=== PATIENT | male | born 1970 | race Caucasian/White ===

== ENCOUNTER 2018-10-31 11:04 | Observation (INO) | payer SELFPAY ==
[2018-10-31 11:23] VITALS: BMI 38.4
[2018-10-31] MEDS ORDERED: Sodium Chloride 0.9% 1,000 ML IV ONE (11:52)
[2018-10-31 12:11] LABS: BASO # 0.1 K/uL (0.0-0.2); BASO % 0.6 % (0.0-2.0); EOS # 0.1 K/uL (0.0-0.7); EOS % 0.5 % (0.0-4.0); HEMOGLOBIN 14.1 g/dL (12.0-18.0); LYMPH # 1.3 K/uL (1.0-4.3); LYMPH % 10.1 % (20.0-40.0); MEAN CELL VOLUME 92.7 fL (80.0-94.0); MEAN CORPUSCULAR HEMOGLOBIN 31.1 pg (27.0-31.0); MEAN CORPUSCULAR HGB CONC 33.6 g/dL (33.0-37.0); MEAN PLATELET VOLUME 8.7 fL (7.2-11.7); MONO # 1.1 K/uL (0.0-0.8); MONO % 8.8 % (0.0-10.0); NEUT # 10.1 K/uL (1.8-7.0); RBC 4.52 Mil/uL (4.40-5.90); RED CELL DISTRIBUTION WIDTH 13.2 % (11.5-14.5); WHITE BLOOD COUNT 12.6 K/uL (4.8-10.8)
[2018-10-31 12:19] LABS: HCG,QUALITATIVE URINE NEGATIVE
[2018-10-31 12:23] LABS: SQUAMOUS EPITHIAL < 1 /hpf (0-5); URINE BACTERIA RARE (<OCC); URINE BILIRUBIN NEGATIVE (NEGATIVE); URINE BLOOD 2+ (NEGATIVE); URINE CLARITY Hazy (Clear); URINE COLOR Amber (YELLOW); URINE GLUCOSE (UA) NORMAL (Normal); URINE LEUKOCYTE ESTERASE NEG Leu/uL (Negative); URINE PROTEIN 1+ mg/dL (NEGATIVE)
[2018-10-31 12:27] LABS: ALB/GLOB RATIO 1.4 (1.0-2.1); ALBUMIN 4.4 g/dL (3.5-5.0); ALT/SGPT 8 U/L (21-72); AST/SGOT 19 U/L (17-59); BLOOD UREA NITROGEN 9 mg/dL (9-20); CALCIUM 9.2 mg/dl (8.6-10.4); GFR NON-AFRICAN AMERICAN > 60; LIPASE 28 U/L (23-300)
--- NOTE | 2018-10-31 12:34 | C.PDOC ---
History Of Present Illness 48 y/o male presents to the ED for evaluation of gradual-onset RLQ pain, developing for past 4-5 days. Associated with some discomfort on urination. No fevers, chills, vomiting, diarrhea, chest pain, SOB, or other associated complaints. Time Seen by Provider: 10/31/18 11:30 Chief Complaint (Nursing): Abdominal Pain History Per: Patient History/Exam Limitations: no limitations Onset/Duration Of Symptoms: Days (x 4) Current Symptoms Are (Timing): Still Present Location Of Pain/Discomfort: RLQ Associated Symptoms: Urinary Symptoms Past Medical History Reviewed: Historical Data, Nursing Documentation, Vital Signs Vital Signs: Last Vital Signs Temp 100.1 F H 10/31/18 11:19 Pulse 104 H 10/31/18 11:19 Resp 18 10/31/18 11:19 BP 123/76 10/31/18 11:19 Pulse Ox 97 10/31/18 11:19 Surgical History: No Surg Hx Family History: States: Unknown Family Hx - Social History Hx Tobacco Use: Yes (former) Hx Alcohol Use: Yes Hx Substance Use: No (Former) - Immunization History Hx Tetanus Toxoid Vaccination: No Hx Influenza Vaccination: No Hx Pneumococcal Vaccination: No Review Of Systems Except As Marked, All Systems Reviewed And Found Negative. Constitutional: Negative for: Fever, Chills Cardiovascular: Negative for: Chest Pain Respiratory: Negative for: Cough, Shortness of Breath Gastrointestinal: Positive for: Abdominal Pain. Negative for: Vomiting, Diar kavon Genitourinary: Positive for: Dysuria. Negative for: Hematuria Musculoskeletal: Negative for: Back Pain Neurological: Negative for: Weakness, Dizziness Physical Exam - Physical Exam Appears: Well, Non-toxic, No Acute Distress Skin: Normal Color, Warm, No Rash Head: Normacephalic Eye(s): bilateral: PERRL Oral Mucosa: Moist Neck: Trachea Midline, Supple Cardiovascular: Rhythm Regular, No Murmur, No JVD Respiratory: No Decreased Breath Sounds, No Accessory Muscle Use, No Rales, No Rhonchi, No Wheezing Gastrointestinal/Abdominal: Soft, Tenderness (Moderate RLQ tenderness), No Distention, No Guarding, No Rebound Back: No CVA Tenderness Extremity: Normal ROM, No Swelling Extremity: Bilateral: Atraumatic Neurological/Psych: Oriented x3, Normal Speech Gait: Steady ED Course And Treatment - Laboratory Results Result Diagrams: 10/31/18 12:08 10/31/18 12:08 Lab Results: Total Bilirubin 1.5 mg/dL (0.2-1.3) H 10/31/18 12:08 AST 19 U/L (17-59) 10/31/18 12:08 ALT 8 U/L (21-72) L 10/31/18 12:08 Alkaline Phosphatase 81 U/L (38-126) 10/31/18 12:08 Total Protein 7.5 g/dL (6.3-8.3) 10/31/18 12:08 Albumin 4.4 g/dL (3.5-5.0) 10/31/18 12:08 Globulin 3.2 gm/dL (2.2-3.9) 10/31/18 12:08 Albumin/Globulin Ratio 1.4 (1.0-2.1) 10/31/18 12:08 Lipase 28 U/L (23-300) 10/31/18 12:08 Urine Color Madhavi (YELLOW) 10/31/18 12:08 Urine Clarity Hazy (Clear) 10/31/18 12:08 Urine pH 5.0 (5.0-8.0) 10/31/18 12:08 Ur Specific [place] 1.030 (1.003-1.030) 10/31/18 12:08 Urine Protein 1+ mg/dL (NEGATIVE) H 10/31/18 12:08 Urine Glucose (UA) Normal mg/dL (Normal) 10/31/18 12:08 Urine Ketones Trace mg/dL (NEGATIVE) 10/31/18 12:08 Urine Blood 2+ (NEGATIVE) H 10/31/18 12:08 Urine Nitrate Negative (NEGATIVE) 10/31/18 12:08 Urine Bilirubin Negative (NEGATIVE) 10/31/18 12:08 Urine Urobilinogen 4.0 mg/dL (0.2-1.0) 10/31/18 12:08 Ur Leukocyte Esterase Neg [place]/uL (Negative) 10/31/18 12:08 Urine WBC (Auto) 2 /hpf (0-5) 10/31/18 12:08 Urine RBC (Auto) 7 /hpf (0-3) H 10/31/18 12:08 Ur Squamous Epith Cells < 1 /hpf (0-5) 10/31/18 12:08 Urine Bacteria Rare (<OCC) 10/31/18 12:08 Urine HCG, Qual Negative 10/31/18 12:08 Urine HCG, Qual Negative 10/31/18 12:08 Lab Interpretation: Abnormal O2 Sat by Pulse Oximetry: 97 (RA) Pulse Ox Interpretation: Normal - CT Scan/US CT A/P Other Rad Studies (CT/US): Radiology Report Reviewed CT/US Interpretation: ictator : Ernesto Argueta MD. Medical Technologist Chemistry : Appro libia : Ernesto Argueta MD. Approver2 : Report Date : 10/31/2018 13:37:59. My Comment : . Date of service: 10/31/2018. PROCEDURE: CT Abdomen and Pelvis with contrast. HISTORY: RLQ pain, fever. COMPARISON: None. TECHNIQUE: Contrast dose: 100 mL Visipaque 320. Radiation dose: Total exam DLP = 1154.27 mGy-cm. This CT exam was performed using one or more of the following dose reduction techniques: Automated exposure control, adjustment of the mA and/or kV according to patient size, and/or use of iterative reconstruction technique. FINDINGS: LOWER THORAX: Unremarkable. LIVER: Unremarkable. No gross lesion or ductal dilatation. GALLBLADDER AND BILE DUCTS: Unremarkable. PANCREAS: Unrema rkable. No gross lesion or ductal dilatation. SPLEEN: Unremarkable. ADRENALS: Unremarkable. No mass. KIDNEYS AND URETERS: Unremarkable. No hydronephrosis. No solid mass. VASCULATURE: Unremarkable. No aortic aneurysm. No aortic atherosclerotic calcification or mural plaque present. BOWEL: There is circumferential mural thickening of the terminal ileum likely secondary to adjacent inflammatory change from appendicitis. There is no bowel obstruction. No other abnormal bowel loops are appreciated. APPENDIX: There is distention of the appendix to a diameter of approximately 1.7 cm. There is extensive periappendiceal inflammatory change. There is probable periappendiceal abscess adjacent to the distal aspect of the appendix. This is mildly irregular and demonstrates only minimal peripheral enhancement. This measures 3.6 x 3.7 x 3.2 cm. There is no free intraperitoneal air. PERITONEUM: Unremarkable. No free fluid. No free air. LYMPH NODES: Unremarkable. No enlarged lymph nodes. BLADDER: Poorly distended. REPRODUCTIVE: Normal prostate. BONES: No acute fracture. OTHER FINDINGS: None. IMPRESSION: Findings consistent with acute appendicitis with probable periappendiceal abscess, up to 3.7 cm in greatest dimension. No free air. Secondary inflammation of the terminal ileum. No other significant abnormality. Progress Note: Labs and CT Abd/Pelvis ordered. Administered NS IV fluids and 30 mg IV Toradol. After CT A/P review, (+) acute appendicitis. Case discussed with surgery on-call and admission arranged Disposition - Disposition Disposition: HOSPITALIZED Disposition Time: 14:30 Condition: STABLE - Clinical Impression Clinical Impression: Acute appendicitis - PA / RETAIL STOCKER / Resident Statement MD/DO has reviewed & agrees with the documentation as recorded. - Scribe Statement The provider has reviewed the documentation as recorded by the Rafiblaurie Gaston All medical record entries made by the Eleonora were at my direction and personally dictated by me. I have reviewed the chart and agree that the record accurately reflects my personal performance of the history, physical exam, medical decision making, and the department course for this patient. I have also personally directed, reviewed, and agree with the discharge instructions and disposition.
[2018-10-31] MEDS ORDERED: Iodixanol 320 MG/ML 100 ML BOTTLE IV ONE (12:49)
--- NOTE | 2018-10-31 13:52 | CT ---
Date of service: 10/31/2018 PROCEDURE: CT Abdomen and Pelvis with contrast HISTORY: RLQ pain, fever COMPARISON: None. TECHNIQUE: Contrast dose: 100 mL Visipaque 320 Radiation dose: Total exam DLP = 1154.27 mGy-cm. This CT exam was performed using one or more of the following dose reduction techniques: Automated exposure control, adjustment of the mA and/or kV according to patient size, and/or use of iterative reconstruction technique. FINDINGS: LOWER THORAX: Unremarkable. LIVER: Unremarkable. No gross lesion or ductal dilatation. GALLBLADDER AND BILE DUCTS: Unremarkable. PANCREAS: Unremarkable. No gross lesion or ductal dilatation. SPLEEN: Unremarkable. ADRENALS: Unremarkable. No mass. KIDNEYS AND URETERS: Unremarkable. No hydronephrosis. No solid mass. VASCULATURE: Unremarkable. No aortic aneurysm. No aortic atherosclerotic calcification or mural plaque present. BOWEL: There is circumferential mural thickening of the terminal ileum likely secondary to adjacent inflammatory change from appendicitis. There is no bowel obstruction. No other abnormal bowel loops are appreciated. APPENDIX: There is distention of the appendix to a diameter of approximately 1.7 cm. There is extensive periappendiceal inflammatory change. There is probable periappendiceal abscess adjacent to the distal aspect of the appendix. This is mildly irregular and demonstrates only minimal peripheral enhancement. This measures 3.6 x 3.7 x 3.2 cm. There is no free intraperitoneal air. PERITONEUM: Unremarkable. No free fluid. No free air. LYMPH NODES: Unremarkable. No enlarged lymph nodes. BLADDER: Poorly distended REPRODUCTIVE: Normal prostate BONES: No acute fracture. OTHER FINDINGS: None. IMPRESSION: Findings consistent with acute appendicitis with probable periappendiceal abscess, up to 3.7 cm in greatest dimension. No free air. Secondary inflammation of the terminal ileum. No other significant abnormality.
[2018-10-31] MEDS ORDERED: Piperacill/Tazo 4.5gm in Dex 4.5 GM/100 ML BAG IVPB STA (14:29)
[2018-10-31] MEDS ORDERED: Piperacill/Tazo 4.5gm in Dex 4.5 GM/100 ML BAG IVPB ONE (14:45)
[2018-10-31 15:40] LABS: INR 1.5; PROTHROMBIN TIME 16.4 SECONDS (9.7-12.2)
--- NOTE | 2018-10-31 15:47 | CP.PCM.HP ---
History of Present Illness - History of Present Illness History of Present Illness: General Surgery - Dr. Ferraro 48 yo M w no PMH who presents w/ RLQ abdominal pain x2 days. Pt states the pain began 2 days ago and was located in the RLQ and suprapubic region. He states he tried to take some medicine for pain but it did not help and the pain became progressively worse. yesterday he was at work for most of the day but when he came home he did not feel like eating and just went to sleep. this morning he woke up and pain was worse so he decided to come to the ED. Pt denies any Nausea/Vomiting, Diarrhea/Constipation, Dysuria/Hematuria, SOB or chest pain. PMH: denies PSH: denies NKDA No meds ETOH use Present on Admission - Present on Admission Any Indicators Present on Admission: No Review of Systems - Review of Systems All systems: reviewed and no additional remarkable complaints except (as per HPI) Past Patient History - Past Social History Smoking Status: Former Smoker - PSYCHIATRIC Hx Substance Use: No (Former) - SURGICAL HISTORY Hx Surgeries: No Meds Allergies/Adverse Reactions: Allergies Allergy/AdvReac Type Severity Reaction Status Date / Time No Known Allergies Allergy Verified 10/31/18 11:16 Physical Exam - Constitutional Appears: No Acute Distress - Head Exam Head Exam: ATRAUMATIC, NORMAL INSPECTION, NORMOCEPHALIC - Eye Exam Eye Exam: Normal appearance - Respiratory Exam Respiratory Exam: NORMAL BREATHING PATTERN. absent: Respiratory Distress - Cardiovascular Exam Cardiovascular Exam: REGULAR RHYTHM - GI/Abdominal Exam GI & Abdominal Exam: Guarding, Rebound, Soft, Tenderness (RLQ). absent: D istended, Hernia, Rigid - Neurological Exam Neurological exam: Alert, Oriented x3 - Psychiatric Exam Psychiatric exam: Normal Affect, Normal Mood - Skin Skin Exam: Dry, Intact Results - Vital Signs Recent Vital Signs: Last Vital Signs Temp 100.1 F H 10/31/18 11:19 Pulse 104 H 10/31/18 11:19 Resp 18 10/31/18 11:19 BP 123/76 10/31/18 11:19 Pulse Ox 97 10/31/18 14:31 - Labs Result Diagrams: 10/31/18 12:08 10/31/18 12:08 Labs: Laboratory Results - last 24 hr 10/31/18 10/31/18 10/31/18 12:08 12:08 12:08 WBC 12.6 H RBC 4.52 Hgb 14.1 Hct 41.8 MCV 92.7 MCH 31.1 H MCHC 33.6 RDW 13.2 Plt Count 269 MPV 8.7 Neut % (Auto) 80.0 H Lymph % (Auto) 10.1 L Stanley % (Auto) 8.8 Eos % (Auto) 0.5 Baso % (Auto) 0.6 Neut # (Auto) 10.1 H Lymph # (Auto) 1.3 Stanley # (Auto) 1.1 H Eos # (Auto) 0.1 Baso # (Auto) 0.1 PT INR APTT Sodium 134 Potassium 4.0 Chloride 96 L Carbon Dioxide 29 Anion Gap 13 BUN 9 Creatinine 0.8 Est GFR ( Amer) > 60 Est GFR (Non-Af Amer) > 60 Random Glucose 118 H Calcium 9.2 Total Bilirubin 1.5 H AST 19 ALT 8 L Alkaline Phosphatase 81 Total Protein 7.5 Albumin 4.4 Globulin 3.2 Albumin/Globulin Ratio 1.4 Lipase 28 Urine Color Madhavi Urine Clarity Hazy Urine pH 5.0 Ur Specific [place] 1.030 Urine Protein 1+ H Urine Glucose (UA) Normal Urine Ketones Trace Urine Blood 2+ H Urine Nitrate Negative Urine Bilirubin Negative Urine Urobilinogen 4.0 Ur Leukocyte Esterase Neg Urine WBC (Auto) 2 Urine RBC (Auto) 7 H Ur Squamous Epith Cells < 1 Urine Bacteria Rare Urine HCG, Qual Negative Influenza Typ A,B (EIA) 10/31/18 10/31/18 12:08 15:15 WBC RBC Hgb Hct MCV MCH MCHC RDW Plt Count MPV Neut % (Auto) Lymph % (Auto) Stanley % (Auto) Eos % (Auto) Baso % (Auto) Neut # (Auto) Lymph # (Auto) Stanley # (Auto) Eos # (Auto) Baso # (Auto) PT 16.4 H INR 1.5 APTT 37 H Sodium Potassium Chloride Carbon Dioxide Anion Gap BUN Creatinine Est GFR ( Amer) Est GFR (Non-Af Amer) Random Glucose Calcium Total Bilirubin AST ALT Alkaline Phosphatase Total Protein Albumin Globulin Albumin/Globulin Ratio Lipase Urine Color Urine Clarity Urine pH Ur Specific [place] Urine Protein Urine Glucose (UA) Urine Ketones Urine Blood Urine Nitrate Urine Bilirubin Urine Urobilinogen Ur Leukocyte Esterase Urine WBC (Auto) Urine RBC (Auto) Ur Squamous Epith Cells Urine Bacteria Urine HCG, Qual Influenza Typ A,B (EIA) Negative for flu a/b Assessment & Plan - Assessment and Plan (Free Text) Assessment: 48 yo M w/ acute appendicitis w/ abscess -NPO -IVF -IV abx - Zosyn -OR for appendectomy and abscess drainage DW Dr. Jasmine White PGY4
[2018-10-31] MEDS ORDERED: Midazolam 2 MG/2 ML VIAL ONE (17:40)
[2018-10-31] MEDS ORDERED: Propofol 10 mg/ml Inj (20 ML) ONE (17:40)
[2018-10-31] MEDS ORDERED: Succinylcholine Chloride 20 mg/ml Syr (5 ml) IV ONE (17:42)
[2018-10-31] MEDS ORDERED: Neostigmine 1:1000 (1 mg/ml) Inj ONE (17:42)
[2018-10-31] MEDS ORDERED: Bupivacaine-Epi 0.5%-1:200,000 PF Inj ONE (17:51)
[2018-10-31] MEDS ORDERED: HYDROmorphone 0.5 mg/0.5 ml ISec IVP PRN (18:41)
--- NOTE | 2018-10-31 19:14 | PCM.SURG1 ---
Surgeon's Initial Post Op Note - Surgeon's Notes Surgeon: Dr. Ferraro Pastry Assistant: Dr. White PGY4 Type of Anesthesia: General Endo Anesthesia Administered By: Sierra Pre-Operative Diagnosis: Acute Perforated Appendicitis w/ Abscess Operative Findings: same Post-Operative Diagnosis: same Operation Performed: Laparoscopic Appendectomy. Drainage of Intra-Abdominal Abscess Specimen/Specimens Removed: Appendix Estimated Blood Loss: EBL {In ML}: 10 Blood Products Given: N/A Drains Used: Sergio Post-Op Condition: Good Date of Surgery/Procedure: 10/31/18 Time of Surgery/Procedure: 19:14
[2018-10-31] MEDS ORDERED: Lactated Ringer's 1,000 ML IV SCH (19:15)
[2018-10-31] MEDS: Piperacill/Tazo 3.375gm in Dex 3.375 GM/50 ML BAG IVPB SCH (20:25)
[2018-10-31 21:40] VITALS: RESP 20
[2018-11-01] MEDS: Piperacill/Tazo 3.375gm in Dex 3.375 GM/50 ML BAG IVPB SCH ×4 (01:07→20:00)
[2018-11-01] MEDS: HYDROmorphone 0.5 mg/0.5 ml ISec IVP PRN ×4 (02:15→18:03)
[2018-11-01 07:28] LABS: BASO % 0.4 % (0.0-2.0); EOS # 0.1 K/uL (0.0-0.7); EOS % 1.2 % (0.0-4.0); HEMOGLOBIN 12.2 g/dL (12.0-18.0); LYMPH # 0.9 K/uL (1.0-4.3); LYMPH % 12.4 % (20.0-40.0); MEAN CELL VOLUME 93.7 fL (80.0-94.0); MEAN CORPUSCULAR HEMOGLOBIN 32.7 pg (27.0-31.0); MEAN CORPUSCULAR HGB CONC 34.9 g/dL (33.0-37.0); MONO # 0.7 K/uL (0.0-0.8); MONO % 9.3 % (0.0-10.0); NEUT # 5.6 K/uL (1.8-7.0); NEUT % 76.7 % (50.0-75.0); NRBC % 0.1 % (0.0-2.0); RBC 3.74 Mil/uL (4.40-5.90); RED CELL DISTRIBUTION WIDTH 13.2 % (11.5-14.5); WHITE BLOOD COUNT 7.3 K/uL (4.8-10.8)
--- NOTE | 2018-11-01 08:09 | CP.PCM.PN ---
Subjective - Date & Time of Evaluation Date of Evaluation: 11/01/18 Time of Evaluation: 08:06 - Subjective Subjective: General Surgeyr - Dr. Ferraro Pt S&E. NICOLAS. Pt has mild lower abdominal pain at site of drain, otherwise denies any complaints. He tolerated regular food yesterday. Fever of 101.5 last night which responded to Tylenol. He denies any Nausea/Vomiting/Chills/Chest pain/SOB/Dysuria. Objective - Vital Signs/Intake and Output Vital Signs (last 24 hours): Temp Pulse Resp BP Pulse Ox 99.8 F H 95 H 20 113/66 94 L 11/01/18 04:30 11/01/18 00:00 11/01/18 00:00 10/31/18 21:39 11/01/18 00:00 Intake and Output: 11/01/18 11/01/18 06:59 18:59 Intake Total 1570 Output Total 152 Balance 1418 - Medications Medications: Current Medications Acetaminophen (Tylenol 325mg Tab) 650 mg PO Q6H PRN PRN Reason: Fever >100.4 F Last Admin: 10/31/18 20:15 Dose: 650 mg Hydromorphone HCl (Dilaudid) 0.5 mg IVP Q4H PRN PRN Reason: Pain, severe (8-10) Last Admin: 11/01/18 06:28 Dose: 0.5 mg Piperacillin Sod/Tazobactam Sod (Zosyn 3.375 Gm Iv Premix) 3.375 gm in 50 mls @ 100 mls/hr IVPB Q6H KAVIN; Protocol Last Admin: 11/01/18 08:03 Dose: 100 mls/hr Ondansetron HCl (Zofran Inj) 4 mg IV Q6 PRN PRN Reason: Nausea/Vomiting Tramadol HCl (Ultram) 50 mg PO TID PRN PRN Reason: Pain, moderate (4-7) - Labs Labs: 11/01/18 07:20 10/31/18 12:08 PT 16.4 SECONDS (9.7-12.2) H 10/31/18 15:15 INR 1.5 10/31/18 15:15 APTT 37 SECONDS (21-34) H 10/31/18 15:15 - Constitutional Appears: Well, No Acute Distress - Head Exam Head Exam: ATRAUMATIC, NORMAL INSPECTION, NORMOCEPHALIC - Eye Exam Eye Exam: Normal appearance - Respiratory Exam Respiratory Exam: NORMAL BREATHING PATTERN. absent: Respiratory Distress - Cardiovascular Exam Cardiovascular Exam: REGULAR RHYTHM - GI/Abdominal Exam GI & Abdominal Exam: Soft, Tenderness (appropriately). absent: Distended, Firm, Guarding, Rigid, Rebound Additional comments: doretha drain suprapubic with serosanguinous drainage, 150cc/24hrs - Neurological Exam Neurological Exam: Alert, Oriented x3 - Psychiatric Exam Psychiatric exam: Normal Affect, Normal Mood - Skin Skin Exam: Dry, Intact Assessment and Plan - Assessment and Plan (Free Text) Assessment: 48 M w/ acute perforated appendicitis s/p Lap appendectomy and abscess drainage, POD 1 -Continue Regular diet -Continue IV Abx - Zosyn -Encourage OOB and Ambulation -Pain control prn -Monitor drain output DW Dr Jasmine White PGY4
[2018-11-01 08:40] LABS: ALB/GLOB RATIO 1.2 (1.0-2.1); ALBUMIN 3.3 g/dL (3.5-5.0); ALT/SGPT < 6 U/L (21-72); AST/SGOT 16 U/L (17-59); BLOOD UREA NITROGEN 10 mg/dL (9-20); GFR NON-AFRICAN AMERICAN > 60
[2018-11-02] MEDS: Piperacill/Tazo 3.375gm in Dex 3.375 GM/50 ML BAG IVPB SCH ×4 (01:36→20:23)
[2018-11-02 07:58] LABS: BASO % 0.2 % (0.0-2.0); EOS # 0.4 K/uL (0.0-0.7); EOS % 4.2 % (0.0-4.0); LYMPH # 0.6 K/uL (1.0-4.3); MEAN CELL VOLUME 94.1 fL (80.0-94.0); MEAN CORPUSCULAR HEMOGLOBIN 32.7 pg (27.0-31.0); MEAN CORPUSCULAR HGB CONC 34.7 g/dL (33.0-37.0); MEAN PLATELET VOLUME 8.9 fL (7.2-11.7); MONO # 0.9 K/uL (0.0-0.8); MONO % 9.4 % (0.0-10.0); NEUT # 7.2 K/uL (1.8-7.0); NEUT % 79.2 % (50.0-75.0); PLATELET COUNT 242 K/uL (130-400); RBC 3.67 Mil/uL (4.40-5.90); RED CELL DISTRIBUTION WIDTH 12.9 % (11.5-14.5); WHITE BLOOD COUNT 9.2 K/uL (4.8-10.8)
[2018-11-02 08:20] LABS: ALB/GLOB RATIO 1.1 (1.0-2.1); ALBUMIN 3.3 g/dL (3.5-5.0); ALT/SGPT 14 U/L (21-72); AST/SGOT 19 U/L (17-59); BLOOD UREA NITROGEN 9 mg/dL (9-20); CALCIUM 8.4 mg/dl (8.6-10.4); GFR NON-AFRICAN AMERICAN > 60
--- NOTE | 2018-11-02 08:41 | CP.PCM.PN ---
Subjective - Date & Time of Evaluation Date of Evaluation: 11/02/18 Time of Evaluation: 08:37 - Subjective Subjective: SURGERY NOTE FOR DR. MAHMOOD 48M seen and examined at bedside. Patient states pain is improving,, denies nausea or vomiting. He is tolerating diet. Objective - Vital Signs/Intake and Output Vital Signs (last 24 hours): Temp Pulse Resp BP Pulse Ox 99.4 F 87 20 123/76 94 L 11/02/18 00:00 11/02/18 00:00 11/02/18 00:00 11/02/18 00:00 11/02/18 03:30 Intake and Output: 11/02/18 11/02/18 06:59 18:59 Intake Total 640 Output Total 62 Balance 578 - Medications Medications: Current Medications Acetaminophen (Tylenol 325mg Tab) 650 mg PO Q6H PRN PRN Reason: Fever >100.4 F Last Admin: 10/31/18 20:15 Dose: 650 mg Hydromorphone HCl (Dilaudid) 0.5 mg IVP Q4H PRN PRN Reason: Pain, severe (8-10) Last Admin: 11/01/18 18:03 Dose: 0.5 mg Piperacillin Sod/Tazobactam Sod (Zosyn 3.375 Gm Iv Premix) 3.375 gm in 50 mls @ 100 mls/hr IVPB Q6H KAVIN; Protocol Last Admin: 11/02/18 08:12 Dose: 100 mls/hr Ondansetron HCl (Zofran Inj) 4 mg IV Q6 PRN PRN Reason: Nausea/Vomiting Tramadol HCl (Ultram) 50 mg PO TID PRN PRN Reason: Pain, moderate (4-7) - Labs Labs: 11/02/18 07:50 11/02/18 07:50 PT 16.4 SECONDS (9.7-12.2) H 10/31/18 15:15 INR 1.5 10/31/18 15:15 APTT 37 SECONDS (21-34) H 10/31/18 15:15 - Constitutional Appears: Non-toxic, No Acute Distress - Respiratory Exam Respiratory Exam: Clear to Ausculation Bilateral, NORMAL BREATHING PATTERN - Cardiovascular Exam Cardiovascular Exam: REGULAR RHYTHM, +S1, +S2 - GI/Abdominal Exam GI & Abdominal Exam: Soft, Tenderness. absent: Distended, Firm, Guarding, Rigid Additional comments: drain - sero sang - Neurological Exam Neurological Exam: Alert, Awake - Skin Skin Exam: Dry, Intact, Normal Color, Warm Assessment and Plan - Assessment and Plan (Free Text) Assessment: 48M s/p lap appendectomy for appendicitis with abscess POD#2 Plan: Continue diet Continue antibiotics IV Monitor Drain output Further recs discuss with Dr. Jasmine Christensen, PGY3
[2018-11-02 11:33] LABS: BANDS 3 % (0-2); EOSINOPHIL 5 % (0-4); LYMPHOCYTE 6 % (20-40); MONOCYTE 10 % (0-10); NEUTROPHIL 76 % (50-75); PLATELET ESTIMATE NORMAL (NORMAL); TOTAL CELLS COUNTED 100
[2018-11-02 11:34] LABS: ANISOCYTOSIS SLIGHT; POLYCHROMIC SLIGHT
[2018-11-02 11:35] LABS: LARGE PLATELETS PRESENT; PLATELET CLUMPS PRESENT
[2018-11-02 11:36] LABS: GIANT PLATELETS PRESENT
[2018-11-02 11:37] LABS: TOXIC GRANULATION PRESENT
[2018-11-02] MEDS: HYDROmorphone 0.5 mg/0.5 ml ISec IVP PRN (20:14)
[2018-11-03] MEDS: Piperacill/Tazo 3.375gm in Dex 3.375 GM/50 ML BAG IVPB SCH ×2 (01:44→08:24)
[2018-11-03 08:29] VITALS: BP 104/65; PULSE 85; TEMP 98.6; O2SAT 97
[2018-11-03] MEDS: HYDROmorphone 0.5 mg/0.5 ml ISec IVP PRN (12:27)
--- NOTE | 2018-11-04 02:17 | OP ---
PROCEDURE DATE: 10/31/2018 SURGEON: Amado Ferraro MD [employer] SUPERVISOR: Dr. Meño White, PGY-4. PREOPERATIVE DIAGNOSIS: Acute appendicitis with perforation and abscess. POSTOPERATIVE DIAGNOSIS: Acute appendicitis with perforation and abscess. PROCEDURE: Laparoscopic appendectomy with drainage of abscess. INDICATIONS: This is a 48-year-old male who presented to the hospital with right lower quadrant abdominal pain for two days duration, fevers, and an elevated white blood cell count. CT was consistent with acute appendicitis with perforation and abscess in the right lower quadrant. DESCRIPTION OF PROCEDURE: The patient was placed in the operating table in the supine position. General anesthesia was induced. A time-out was completed verifying correct patient, procedure, site, positioning, and special equipment prior to beginning the procedure. The abdomen was prepped and draped in the usual sterile fashion, and an incision was made in the natural skin line, just below the umbilicus. The fascia was elevated and the Veress needle was inserted. Appropriate position was confirmed, and the abdomen was insufflated. A 12-mm trocar was then inserted using the Visiport technique, The laparoscope was inserted and the abdomen inspected. No injuries from initial trocar placement were noted. Under direct visualization, two additional 5-mm trocars were then placed in the left lower quadrant and suprapubic regions. Care was taken to avoid any injury to the bladder and inferior epigastric vessels. The table was placed in Trendelenburg position with the right side elevated. The small bowel was gently manipulated out of the right lower quadrant, and an abscess was encountered just beneath what appeared to be the appendix. The abscess was thoroughly drained, and the fluid was sent for culture. The appendix was then bluntly dissected from the inferior abdominal wall. The LigaSure was then used to take the mesoappendix. An Endo LORRAINE stapler was then placed across the base of the appendix. The appendix was placed in the endoscopic retrieval bag and withdrawn from the abdomen. The right lower quadrant of the abdomen was then thoroughly irrigated and hemostasis was assured. Fluid was suctioned out. No additional pathology was identified. A closed suction drain was placed into the abscess cavity and withdrawn through the suprapubic trocar site. Secondary trocars were removed under direct vision. No bleeding was noted. The laparoscope was withdrawn and the umbilical trocar removed. The abdomen was allowed to collapse. The 12-mm trocar site, the fascia was closed with a 0-Vicryl [id number] suture. The skin with the trocar sites were then closed with subcuticular 4-0 Monocryl suture and Steri-Strips were applied. The drain was secured in place with an 0 silk suture. The patient tolerated the procedure well and was taken to the postanesthesia care unit in stable condition. Melida White DO Amado Ferraro MD
--- NOTE | 2018-11-04 21:49 | CARD ---
APPROVED REPORT Date of service: 10/31/2018 EKG Measurement Heart [id number] <Conclusion> Normal sinus rhythm Minimal voltage criteria for LVH, may be normal variant Inferior infarct, age undetermined Abnormal ECG
== END 2018-11-03 13:28 | disposition home or self-care (01) ==
LOC: C.ER 11:04 → C.9E 13:45 → C.3T 18:52 → C.9E 19:01 → C.3T 19:41
PROVIDERS: ADMIT Surgery; ATTEND Surgery
DX: K35.33 Acute appendicitis with perforation, localized peritonitis, and gangrene, with abscess (principal)
CPT/HCPCS: 36415; 44970; 74177; 80053; 81001; 83690; 83735; 84100; 84703; 85025; 85610; 85730; 86850; 86900; 87040; 87070; 87181; 87804; 88304; 93005; 96361; 96365; 96366; 96375; 96376; 99285; G0378; J1170; J1885; J2001; J2250; J2405; J2543; J2704; J2710; J3010; J7030; J7120; Q9967